=== PATIENT | male | born 1955 | race Caucasian/White ===

== ENCOUNTER → 2017-03-15 | Outpatient (CLI) | payer BC | LOC: LAB 11:18 → EDSTATUS 11:26 | DX: R06.02 Shortness of breath (principal); R60.9 Edema, unspecified ==

== ENCOUNTER → 2017-04-04 | Outpatient (REF) | LOC: LAB 16:18 | DX: R79.89 Other specified abnormal findings of blood chemistry (principal); D72.829 Elevated white blood cell count, unspecified ==

== ENCOUNTER → 2017-04-11 | Outpatient (REF) | LOC: LAB 08:59 | DX: R74.8 Abnormal levels of other serum enzymes (principal); R79.89 Other specified abnormal findings of blood chemistry ==

== ENCOUNTER → 2017-05-31 | Outpatient (CLI) | payer BC | LOC: RAD 08:07 | DX: N26.1 Atrophy of kidney (terminal) (principal) ==

== ENCOUNTER → 2017-06-27 | Outpatient (CLI) | payer BC | LOC: RAD 09:06 | DX: R79.89 Other specified abnormal findings of blood chemistry (principal); E11.8 Type 2 diabetes mellitus with unspecified complications; Z79.4 Long term (current) use of insulin ==

== ENCOUNTER 2017-11-25 15:00 | Outpatient (RCR) | payer BC | END 2018-02-23 | disposition home or self-care (01) | LOC: CARDREHAB | DX: Z48.812 Encounter for surgical aftercare following surgery on the circulatory system (principal); Z95.5 Presence of coronary angioplasty implant and graft; I21.4 Non-ST elevation (NSTEMI) myocardial infarction ==

== ENCOUNTER 2018-02-24 14:30 | Outpatient (RCR) | payer BC | END 2018-05-18 13:15 | disposition home or self-care (01) | LOC: CARDREHAB 14:30 | DX: Z48.812 Encounter for surgical aftercare following surgery on the circulatory system (principal); Z95.5 Presence of coronary angioplasty implant and graft; I25.2 Old myocardial infarction ==

== ENCOUNTER → 2018-06-12 | Outpatient (CLI) | payer BC ==
[2018-06-12 08:19] LABS: BASO # 0.1 (0.02-0.10); EOS # 0.6 (0.04-0.40); EOS % 5.9 % (0.0-4.0); HEMATOCRIT 43.7 % (42.0-52.0); HEMOGLOBIN 13.9 g/dL (13.5-18.0); LYMPH# 2.3 (1.50-4.00); MEAN CELL VOLUME 83 fl (78-100); MEAN CORPUSCULAR HEMOGLOBIN 26 pg (27-31); MEAN CORPUSCULAR HGB CONC 32 g/dL (33-37); MEAN PLATELET VOLUME 9.8 fl (7.4-10.4); MONO # 1.1 (0.20-0.80); NEU # 5.9 (1.40-6.50); PLATELET COUNT 297 K/mm3 (130-400); RED BLOOD COUNT 5.28 M/mm3 (4.20-5.60); RED CELL DISTRIBUTION WIDTH 20.9 % (11.5-14.5)
[2018-06-12 08:21] LABS: POTASSIUM 4.9 mmol/L (3.6-5.0)
[2018-06-12 08:47] LABS: PROTHROMBIN TIME 13.3 SECONDS (9.0-12.0)
== END ==
LOC: LAB 07:54
PROVIDERS: Internal Medicine
DX: G93.40 Encephalopathy, unspecified (principal)

== ENCOUNTER → 2018-06-19 | Outpatient (CLI) | payer BC ==
[2018-06-19 09:34] LABS: PROTHROMBIN TIME 20.2 SECONDS (9.0-12.0)
== END ==
LOC: LAB 06:45
PROVIDERS: Family Medicine
DX: I69.30 Unspecified sequelae of cerebral infarction (principal)

== ENCOUNTER → 2018-06-26 | Outpatient (CLI) | payer BC ==
[2018-06-26 08:32] LABS: PROTHROMBIN TIME 30.3 SECONDS (9.0-12.0)
== END ==
LOC: LAB 06:55 → EDSTATUS 08:04
PROVIDERS: Family Medicine
DX: I50.9 Heart failure, unspecified (principal)

== ENCOUNTER → 2018-07-03 | Outpatient (CLI) | payer BC ==
[2018-07-03 08:44] LABS: PROTHROMBIN TIME 35.9 SECONDS (9.0-12.0)
== END ==
LOC: LAB 06:30
PROVIDERS: Family Medicine
DX: I50.22 Chronic systolic (congestive) heart failure (principal); I21.4 Non-ST elevation (NSTEMI) myocardial infarction; Z79.01 Long term (current) use of anticoagulants

== ENCOUNTER → 2018-07-10 | Outpatient (CLI) | payer BC ==
[2018-07-10 20:05] LABS: PROTHROMBIN TIME 18.9 SECONDS (9.0-12.0)
== END ==
LOC: LAB 17:53
PROVIDERS: Family Medicine
DX: I12.9 Hypertensive chronic kidney disease with stage 1 through stage 4 chronic kidney disease, or unspecified chronic kidney disease (principal); N18.9 Chronic kidney disease, unspecified; I69.30 Unspecified sequelae of cerebral infarction

== ENCOUNTER → 2018-07-17 | Outpatient (CLI) | payer BC ==
[2018-07-17 14:52] LABS: PROTHROMBIN TIME 16.3 SECONDS (9.0-12.0)
== END ==
LOC: LAB 13:00 → EDSTATUS 14:07
PROVIDERS: Family Medicine
DX: Z51.81 Encounter for therapeutic drug level monitoring (principal); Z79.01 Long term (current) use of anticoagulants

== ENCOUNTER → 2018-07-18 | Outpatient (CLI) | payer BC | LOC: LAB 05:48 | DX: N18.9 Chronic kidney disease, unspecified (principal) ==

== ENCOUNTER → 2018-07-21 | Outpatient (CLI) | payer BC ==
[2018-07-21 08:19] LABS: PROTHROMBIN TIME 21.6 SECONDS (9.0-12.0)
== END ==
LOC: LAB 06:42
PROVIDERS: Family Medicine
DX: I50.9 Heart failure, unspecified (principal)

== ENCOUNTER → 2018-07-28 | Outpatient (CLI) | payer BC ==
[2018-07-28 07:50] LABS: PROTHROMBIN TIME 26.2 SECONDS (9.0-12.0)
== END ==
LOC: LAB 06:45 → EDSTATUS 07:06
PROVIDERS: Family Medicine
DX: I50.9 Heart failure, unspecified (principal)

== ENCOUNTER → 2018-08-11 | Outpatient (CLI) | payer BC ==
[2018-08-11 09:20] LABS: PROTHROMBIN TIME 41.6 SECONDS (9.0-12.0)
== END ==
LOC: LAB 08:00
PROVIDERS: Family Medicine
DX: Z51.81 Encounter for therapeutic drug level monitoring (principal); Z79.01 Long term (current) use of anticoagulants; Z86.73 Personal history of transient ischemic attack (TIA), and cerebral infarction without residual deficits

== ENCOUNTER → 2018-08-21 | Outpatient (CLI) | payer BC ==
[2018-08-21 14:32] LABS: PROTHROMBIN TIME 27.4 SECONDS (9.0-12.0)
== END ==
LOC: LAB 14:01
PROVIDERS: Family Medicine
DX: I21.4 Non-ST elevation (NSTEMI) myocardial infarction (principal); Z79.01 Long term (current) use of anticoagulants

== ENCOUNTER → 2018-08-29 | Outpatient (CLI) | payer BC | LOC: LAB 06:10 | DX: E11.9 Type 2 diabetes mellitus without complications (principal) ==

== ENCOUNTER → 2018-09-04 | Outpatient (CLI) | payer BC ==
[2018-09-04 12:43] LABS: PROTHROMBIN TIME 48.9 SECONDS (9.0-12.0)
== END ==
LOC: LAB 11:15
PROVIDERS: Family Medicine
DX: I42.9 Cardiomyopathy, unspecified (principal)

== ENCOUNTER → 2018-09-06 | Outpatient (CLI) | payer BC ==
[2018-09-06 07:18] LABS: PROTHROMBIN TIME 30.9 SECONDS (9.0-12.0)
== END ==
LOC: LAB 06:15
PROVIDERS: Family Medicine
DX: I50.22 Chronic systolic (congestive) heart failure (principal); Z79.01 Long term (current) use of anticoagulants

== ENCOUNTER → 2018-09-11 | Outpatient (CLI) | payer BC ==
[2018-09-11 09:29] LABS: PROTHROMBIN TIME 19.7 SECONDS (9.0-12.0)
== END ==
LOC: LAB 07:55
PROVIDERS: Family Medicine
DX: I25.10 Atherosclerotic heart disease of native coronary artery without angina pectoris (principal)

== ENCOUNTER → 2018-09-18 | Outpatient (CLI) | payer BC ==
[2018-09-18 08:18] LABS: PROTHROMBIN TIME 24.9 SECONDS (9.0-12.0)
== END ==
LOC: LAB 07:38
PROVIDERS: Family Medicine
DX: I50.9 Heart failure, unspecified (principal)

== ENCOUNTER → 2018-09-26 | Outpatient (CLI) | payer BC ==
[2018-09-26 10:35] LABS: CALCIUM 8.8 mg/dL (8.4-10.2); POTASSIUM 3.8 mmol/L (3.6-5.0)
[2018-09-26 11:37] LABS: PROTHROMBIN TIME 27.8 SECONDS (9.0-12.0)
== END ==
LOC: LAB 08:41
PROVIDERS: Family Medicine
DX: I50.22 Chronic systolic (congestive) heart failure (principal)

== ENCOUNTER → 2018-10-03 | Outpatient (CLI) | payer MEDICARE ==
[2018-10-03 13:29] LABS: CALCIUM 8.9 mg/dL (8.4-10.2); POTASSIUM 3.3 mmol/L (3.6-5.0)
== END ==
LOC: LAB 05:15 → EDSTATUS 12:41
PROVIDERS: Family Medicine
DX: E11.9 Type 2 diabetes mellitus without complications (principal); R60.9 Edema, unspecified; Z79.4 Long term (current) use of insulin

== ENCOUNTER → 2018-10-10 | Outpatient (CLI) | payer MEDICARE ==
[2018-10-10 13:34] LABS: PROTHROMBIN TIME 18.1 SECONDS (9.0-12.0)
== END ==
LOC: LAB 05:55
PROVIDERS: Family Medicine
DX: Z51.81 Encounter for therapeutic drug level monitoring (principal); Z79.01 Long term (current) use of anticoagulants; I25.10 Atherosclerotic heart disease of native coronary artery without angina pectoris

== ENCOUNTER → 2018-10-11 | Outpatient (CLI) | payer MEDICARE ==
[2018-10-11 05:59] LABS: POTASSIUM 3.4 mmol/L (3.6-5.0)
== END ==
LOC: LAB 05:30
PROVIDERS: Family Medicine
DX: R79.89 Other specified abnormal findings of blood chemistry (principal)

== ENCOUNTER → 2018-10-17 | Outpatient (CLI) | payer MEDICARE, BC | LOC: LAB 06:43 | PROVIDERS: Family Medicine | DX: I69.30 Unspecified sequelae of cerebral infarction (principal); Z79.01 Long term (current) use of anticoagulants ==

== ENCOUNTER → 2018-10-31 | Outpatient (CLI) | payer MEDICARE, BC ==
[2018-10-31 07:54] LABS: PROTHROMBIN TIME 19.7 SECONDS (9.0-12.0)
== END ==
LOC: LAB 06:29
PROVIDERS: Family Medicine
DX: I69.30 Unspecified sequelae of cerebral infarction (principal); Z79.01 Long term (current) use of anticoagulants

== ENCOUNTER → 2018-11-14 | Outpatient (CLI) | payer MEDICARE, BC | LOC: LAB 05:15 | PROVIDERS: Family Medicine | DX: Z79.01 Long term (current) use of anticoagulants (principal) ==

== ENCOUNTER → 2018-12-05 | Outpatient (CLI) | payer MEDICARE, BC ==
[2018-12-05 06:44] LABS: PROTHROMBIN TIME 35.4 SECONDS (9.0-12.0)
== END ==
LOC: LAB 05:39
PROVIDERS: Family Medicine
DX: I69.30 Unspecified sequelae of cerebral infarction (principal); Z79.01 Long term (current) use of anticoagulants

== ENCOUNTER → 2018-12-12 | Outpatient (CLI) | payer MEDICARE, BC ==
[2018-12-12 08:07] LABS: PROTHROMBIN TIME 25.1 SECONDS (9.0-12.0)
== END ==
LOC: LAB 07:05
PROVIDERS: Family Medicine
DX: I69.30 Unspecified sequelae of cerebral infarction (principal); Z79.01 Long term (current) use of anticoagulants

== ENCOUNTER → 2018-12-26 | Outpatient (CLI) | payer MEDICARE, BC | LOC: LAB 06:17 | PROVIDERS: Family Medicine | DX: I50.22 Chronic systolic (congestive) heart failure (principal); Z79.01 Long term (current) use of anticoagulants ==

== ENCOUNTER → 2019-01-04 | Outpatient (CLI) | payer MEDICARE, BC ==
[2019-01-04 07:47] LABS: PROTHROMBIN TIME 51.4 SECONDS (9.0-12.0)
== END ==
LOC: LAB 07:20
PROVIDERS: Family Medicine
DX: I69.30 Unspecified sequelae of cerebral infarction (principal); Z79.01 Long term (current) use of anticoagulants

== ENCOUNTER → 2019-01-05 | Outpatient (CLI) | payer MEDICARE, BC ==
[2019-01-05 08:55] LABS: PROTHROMBIN TIME 36.8 SECONDS (9.0-12.0)
== END ==
LOC: LAB 07:42
PROVIDERS: Family Medicine
DX: Z79.01 Long term (current) use of anticoagulants (principal)

== ENCOUNTER → 2019-01-08 | Outpatient (CLI) | payer MEDICARE, BC ==
[2019-01-08 07:26] LABS: PROTHROMBIN TIME 17.8 SECONDS (9.0-12.0)
== END ==
LOC: LAB 06:30
PROVIDERS: Family Medicine
DX: Z51.81 Encounter for therapeutic drug level monitoring (principal); Z79.01 Long term (current) use of anticoagulants

== ENCOUNTER → 2019-01-11 | Outpatient (CLI) | payer MEDICARE, BC ==
[2019-01-11 06:17] LABS: PROTHROMBIN TIME 21.9 SECONDS (9.0-12.0)
== END ==
LOC: LAB 05:28
PROVIDERS: Family Medicine
DX: Z51.81 Encounter for therapeutic drug level monitoring (principal); Z79.01 Long term (current) use of anticoagulants; Z86.73 Personal history of transient ischemic attack (TIA), and cerebral infarction without residual deficits

== ENCOUNTER → 2019-01-16 | Outpatient (CLI) | payer MEDICARE, BC ==
[2019-01-16 09:30] LABS: PROTHROMBIN TIME 16.5 SECONDS (9.0-12.0)
== END ==
LOC: LAB 06:13
PROVIDERS: Family Medicine
DX: I69.30 Unspecified sequelae of cerebral infarction (principal); Z79.01 Long term (current) use of anticoagulants

== ENCOUNTER → 2019-01-19 | Outpatient (CLI) | payer MEDICARE, BC ==
[2019-01-19 16:02] LABS: PROTHROMBIN TIME 25.2 SECONDS (9.0-12.0)
== END ==
LOC: LAB 15:10
PROVIDERS: Family Medicine
DX: Z51.81 Encounter for therapeutic drug level monitoring (principal); Z79.01 Long term (current) use of anticoagulants

== ENCOUNTER → 2019-01-23 | Outpatient (CLI) | payer MEDICARE, BC ==
[2019-01-23 07:10] LABS: PROTHROMBIN TIME 29.3 SECONDS (9.0-12.0)
== END ==
LOC: LAB 06:35
PROVIDERS: Family Medicine
DX: I25.10 Atherosclerotic heart disease of native coronary artery without angina pectoris (principal); Z79.01 Long term (current) use of anticoagulants

== ENCOUNTER → 2019-01-29 | Outpatient (CLI) | payer MEDICARE, BC ==
[2019-01-29 09:15] LABS: PROTHROMBIN TIME 22.5 SECONDS (9.0-12.0)
== END ==
LOC: LAB 06:54
PROVIDERS: Family Medicine
DX: Z01.89 Encounter for other specified special examinations (principal)

== ENCOUNTER → 2019-02-06 | Outpatient (CLI) | payer MEDICARE, BC ==
[2019-02-06 07:09] LABS: PROTHROMBIN TIME 26.1 SECONDS (9.0-12.0)
== END ==
LOC: LAB 06:20
PROVIDERS: Family Medicine
DX: I50.22 Chronic systolic (congestive) heart failure (principal); Z79.01 Long term (current) use of anticoagulants

== ENCOUNTER → 2019-02-27 | Outpatient (CLI) | payer MEDICARE, BC ==
[2019-02-27 08:32] LABS: PROTHROMBIN TIME 20.6 SECONDS (9.0-12.0)
== END ==
LOC: LAB 06:27
PROVIDERS: Family Medicine
DX: I69.30 Unspecified sequelae of cerebral infarction (principal); Z79.01 Long term (current) use of anticoagulants

== ENCOUNTER → 2019-03-27 | Outpatient (CLI) | payer MEDICARE, BC | LOC: LAB 05:05 | PROVIDERS: Family Medicine | DX: I69.30 Unspecified sequelae of cerebral infarction (principal); Z79.01 Long term (current) use of anticoagulants ==

== ENCOUNTER → 2019-04-10 | Outpatient (CLI) | payer MEDICARE, BC | LOC: LAB 05:28 → EDSTATUS 08:07 | PROVIDERS: Family Medicine | DX: I21.4 Non-ST elevation (NSTEMI) myocardial infarction (principal); I50.22 Chronic systolic (congestive) heart failure ==

== ENCOUNTER → 2019-05-02 | Outpatient (CLI) | payer MEDICARE, BC ==
[2019-05-02 06:32] LABS: PROTHROMBIN TIME 26.3 SECONDS (9.0-12.0)
== END ==
LOC: LAB 05:40
PROVIDERS: Family Medicine
DX: Z51.81 Encounter for therapeutic drug level monitoring (principal); Z79.01 Long term (current) use of anticoagulants

== ENCOUNTER → 2019-05-16 | Outpatient (CLI) | payer MEDICARE, BC ==
[2019-05-16 06:29] LABS: PROTHROMBIN TIME 28.9 SECONDS (9.0-12.0)
== END ==
LOC: LAB 05:30
PROVIDERS: Family Medicine
DX: I21.4 Non-ST elevation (NSTEMI) myocardial infarction (principal); Z79.01 Long term (current) use of anticoagulants

== ENCOUNTER → 2019-05-30 | Outpatient (CLI) | payer MEDICARE, BC ==
[2019-05-30 07:30] LABS: PROTHROMBIN TIME 24.2 SECONDS (9.0-12.0)
== END ==
LOC: LAB 06:35
PROVIDERS: Family Medicine
DX: I21.4 Non-ST elevation (NSTEMI) myocardial infarction (principal); Z79.01 Long term (current) use of anticoagulants

== ENCOUNTER → 2019-06-13 | Outpatient (CLI) | payer MEDICARE, BC ==
[2019-06-13 06:35] LABS: PROTHROMBIN TIME 28.2 SECONDS (9.0-12.0)
== END ==
LOC: LAB 05:25
PROVIDERS: Family Medicine
DX: I25.10 Atherosclerotic heart disease of native coronary artery without angina pectoris (principal)

== ENCOUNTER → 2019-07-12 | Outpatient (CLI) | payer MEDICARE, BC ==
[2019-07-12 10:49] LABS: PROTHROMBIN TIME 41.3 SECONDS (9.0-12.0)
== END ==
LOC: LAB 07:05
PROVIDERS: Family Medicine
DX: Z51.81 Encounter for therapeutic drug level monitoring (principal); Z79.01 Long term (current) use of anticoagulants

== ENCOUNTER → 2019-07-16 | Outpatient (CLI) | payer MEDICARE, BC ==
[2019-07-16 08:17] LABS: PROTHROMBIN TIME 22.9 SECONDS (9.0-12.0)
== END ==
LOC: LAB 07:10
PROVIDERS: Family Medicine
DX: Z51.81 Encounter for therapeutic drug level monitoring (principal); Z79.01 Long term (current) use of anticoagulants

== ENCOUNTER → 2019-07-23 | Outpatient (CLI) | payer MEDICARE, BC ==
[2019-07-23 11:03] LABS: PROTHROMBIN TIME 17.5 SECONDS (9.0-12.0)
== END ==
LOC: LAB 10:05
PROVIDERS: Family Medicine
DX: Z51.81 Encounter for therapeutic drug level monitoring (principal); Z79.01 Long term (current) use of anticoagulants

== ENCOUNTER → 2019-08-13 | Outpatient (CLI) | payer MEDICARE, BC ==
[2019-08-13 08:29] LABS: PROTHROMBIN TIME 16.3 SECONDS (9.0-12.0)
== END ==
LOC: LAB 07:44
PROVIDERS: Family Medicine
DX: Z79.01 Long term (current) use of anticoagulants (principal); Z86.718 Personal history of other venous thrombosis and embolism

== ENCOUNTER → 2019-08-20 | Outpatient (CLI) | payer MEDICARE, BC ==
[2019-08-20 13:10] LABS: PROTHROMBIN TIME 23.2 SECONDS (9.0-12.0)
== END ==
LOC: LAB 12:45
PROVIDERS: Family Medicine
DX: Z51.81 Encounter for therapeutic drug level monitoring (principal); Z79.01 Long term (current) use of anticoagulants

== ENCOUNTER → 2019-08-28 | Outpatient (CLI) | payer MEDICARE, BC | LOC: LAB 05:30 | PROVIDERS: Family Medicine | DX: Z51.81 Encounter for therapeutic drug level monitoring (principal); Z79.01 Long term (current) use of anticoagulants ==

== ENCOUNTER → 2019-09-11 | Outpatient (CLI) | payer MEDICARE, BC ==
[~2019-09-11] MED LIST: AMIODARONE200 MG PO; ASPIRIN E.C. 8181 MG; ATORVASTATIN CA20 MG PO; CARVEDILOL25 MG PO; COLACE100 M1 PO; FUROSEMIDE40 MG; LEVEMIR FLEX100 U/ML SQ; MASON NATURAL1000 IU PO; MELATONIN3 M3 PO; METOLAZONE5 MG PO; MIRALAX17 GM PO; MODAFINIL100 MG PO; NOVOLOG FLEX100 U/ML SQ; REMERON15 MG PO; WARFARIN SODIUM2 MG PO
[2019-09-11 05:55] LABS: PROTHROMBIN TIME 27.8 SECONDS (9.0-12.0)
== END ==
LOC: LAB 05:30
PROVIDERS: Family Medicine
DX: I21.4 Non-ST elevation (NSTEMI) myocardial infarction (principal); Z79.01 Long term (current) use of anticoagulants

== ENCOUNTER 2019-09-12 15:45 | Emergency (ER) | payer MEDICARE, BC ==
[~2019-09-12] VITALS: Wt 95.2 kg
[2019-09-12] MEDS ORDERED: AMIODARONE200 MG PO (15:56)
[2019-09-12] MEDS ORDERED: ASPIRIN E.C. 8181 MG (15:57)
[2019-09-12] MEDS ORDERED: ATORVASTATIN CA20 MG PO (15:57)
[2019-09-12] MEDS ORDERED: CARVEDILOL25 MG PO (15:58)
[2019-09-12] MEDS ORDERED: COLACE100 M1 PO (15:59)
[2019-09-12] MEDS ORDERED: WARFARIN SODIUM2 MG PO (15:59)
[2019-09-12] MEDS ORDERED: FUROSEMIDE40 MG (15:59)
[2019-09-12] MEDS ORDERED: LEVEMIR FLEX100 U/ML SQ (15:59)
[2019-09-12] MEDS ORDERED: METOLAZONE5 MG PO (16:00)
[2019-09-12] MEDS ORDERED: REMERON15 MG PO (16:00)
[2019-09-12] MEDS ORDERED: MODAFINIL100 MG PO (16:00)
[2019-09-12] MEDS ORDERED: MELATONIN3 M3 PO (16:00)
[2019-09-12] MEDS ORDERED: MASON NATURAL1000 IU PO (16:01)
[2019-09-12] MEDS ORDERED: MIRALAX17 GM PO (16:01)
[2019-09-12] MEDS ORDERED: NOVOLOG FLEX100 U/ML SQ (16:01)
[2019-09-12 16:18] LABS: HEMATOCRIT 53.4 % (42.0-52.0); HEMOGLOBIN 18.2 g/dL (13.5-18.0); MEAN CELL VOLUME 85 fl (78-100); MEAN CORPUSCULAR HEMOGLOBIN 29 pg (27-31); MEAN CORPUSCULAR HGB CONC 34 g/dL (33-37); MEAN PLATELET VOLUME 9.8 fl (7.4-10.4); PLATELET COUNT 242 K/mm3 (130-400); RED BLOOD COUNT 6.29 M/mm3 (4.20-5.60); RED CELL DISTRIBUTION WIDTH 16.7 % (11.5-14.5); WHITE BLOOD COUNT 13.9 K/mm3 (4.8-10.8)
[2019-09-12 16:26] LABS: LYMPHOCYTE 14 % (20-51); MONOCYTE 13 % (3-10); NEUTROPHILS 71 % (42-75)
[2019-09-12 16:27] LABS: ALBUMIN 3.6 g/dL (3.4-4.8); POTASSIUM 3.2 mmol/L (3.5-5.1)
[2019-09-12 16:29] LABS: CALCIUM 9.9 mg/dL (8.3-10.5)
[2019-09-12 16:32] LABS: TOTAL BILIRUBIN 1.6 mg/dL (0.2-1.2)
[2019-09-12 16:58] LABS: PH-URINE 7.5 (5.0 - 8.0); URINE APPEARANCE CLEAR; URINE BILIRUBIN NEGATIVE (NEGATIVE); URINE BLOOD TRACE (NEGATIVE); URINE COLOR YELLOW; URINE KETONE NEGATIVE (NEGATIVE); URINE LEUKOCYTE ESTERASE NEGATIVE (NEGATIVE); URINE MUCUS PRESENT (NOT PRESENT); URINE NITRATE NEGATIVE (NEGATIVE); URINE PROTEIN(semi-quant) TRACE mg/dL (NEGATIVE); URINE UROBILINOGEN NORMAL (NORMAL); URINE WBC 0-1 /hpf (0-3)
[2019-09-12 17:57] VITALS: BP 128/74
== END 2019-09-12 17:38 | disposition home or self-care (01) ==
LOC: ED 15:45
PROVIDERS: Physician Assistant
DX: M25.561 Pain in right knee (principal); E87.6 Hypokalemia; D72.829 Elevated white blood cell count, unspecified; E11.22 Type 2 diabetes mellitus with diabetic chronic kidney disease; I13.0 Hypertensive heart and chronic kidney disease with heart failure and stage 1 through stage 4 chronic kidney disease, or unspecified chronic kidney disease; I50.9 Heart failure, unspecified; N18.9 Chronic kidney disease, unspecified; S89.91XA Unspecified injury of right lower leg, initial encounter; I25.2 Old myocardial infarction; I25.10 Atherosclerotic heart disease of native coronary artery without angina pectoris; Z79.01 Long term (current) use of anticoagulants; Z79.4 Long term (current) use of insulin; Z79.82 Long term (current) use of aspirin; W06.XXXA Fall from bed, initial encounter; Y92.129 Unspecified place in nursing home as the place of occurrence of the external cause
CPT/HCPCS: L1830

== ENCOUNTER → 2019-10-02 | Outpatient (CLI) | payer MEDICARE, BC, MEDICAID ==
[2019-09-12 17:57] VITALS: BP 128/74
[2019-10-02 05:55] LABS: PROTHROMBIN TIME 27.1 SECONDS (9.0-12.0)
== END ==
LOC: LAB 05:30
PROVIDERS: Family Medicine
DX: I21.4 Non-ST elevation (NSTEMI) myocardial infarction (principal); Z79.01 Long term (current) use of anticoagulants

== ENCOUNTER → 2019-10-09 | Outpatient (CLI) | payer MEDICARE, BC, MEDICAID ==
[2019-09-12 17:57] VITALS: BP 128/74
[2019-10-09 07:07] LABS: PROTHROMBIN TIME 41.2 SECONDS (9.0-12.0)
== END ==
LOC: LAB 05:57
PROVIDERS: Family Medicine
DX: Z51.81 Encounter for therapeutic drug level monitoring (principal); Z79.01 Long term (current) use of anticoagulants

== ENCOUNTER → 2019-10-12 | Outpatient (CLI) | payer MEDICARE, BC, MEDICAID ==
[2019-09-12 17:57] VITALS: BP 128/74
[2019-10-12 12:18] LABS: PROTHROMBIN TIME 31.9 SECONDS (9.0-12.0)
== END ==
LOC: LAB 11:38
PROVIDERS: Family Medicine
DX: Z51.81 Encounter for therapeutic drug level monitoring (principal); Z79.01 Long term (current) use of anticoagulants

== ENCOUNTER → 2019-10-19 | Outpatient (CLI) | payer MEDICARE, BC, MEDICAID ==
[2019-10-19 15:28] LABS: PROTHROMBIN TIME 18.9 SECONDS (9.0-12.0)
== END ==
LOC: LAB 14:40
PROVIDERS: Family Medicine
DX: Z51.81 Encounter for therapeutic drug level monitoring (principal); Z79.01 Long term (current) use of anticoagulants

== ENCOUNTER → 2019-10-26 | Outpatient (CLI) | payer MEDICARE, BC, MEDICAID ==
[2019-10-26 10:01] LABS: PROTHROMBIN TIME 19.4 SECONDS (9.0-12.0)
== END ==
LOC: LAB 06:30
PROVIDERS: Family Medicine
DX: Z79.01 Long term (current) use of anticoagulants (principal); Z86.73 Personal history of transient ischemic attack (TIA), and cerebral infarction without residual deficits

== ENCOUNTER → 2019-11-02 | Outpatient (CLI) | payer MEDICARE, BC, MEDICAID ==
[2019-11-02 08:42] LABS: PROTHROMBIN TIME 23.4 SECONDS (9.0-12.0)
== END ==
LOC: LAB 07:00
PROVIDERS: Family Medicine
DX: Z51.81 Encounter for therapeutic drug level monitoring (principal); Z79.01 Long term (current) use of anticoagulants

== ENCOUNTER → 2019-11-30 | Outpatient (CLI) | payer MEDICARE, BC, MEDICAID ==
[2019-11-30 14:23] LABS: PROTHROMBIN TIME 34.1 SECONDS (9.0-12.0)
== END ==
LOC: LAB 13:40
PROVIDERS: Family Medicine
DX: Z51.81 Encounter for therapeutic drug level monitoring (principal); Z79.01 Long term (current) use of anticoagulants

== ENCOUNTER → 2019-12-07 | Outpatient (CLI) | payer MEDICARE, BC, MEDICAID ==
[2019-12-07 13:47] LABS: PROTHROMBIN TIME 41.9 SECONDS (9.0-12.0)
== END ==
LOC: LAB 12:15
PROVIDERS: Family Medicine
DX: Z51.81 Encounter for therapeutic drug level monitoring (principal); Z79.01 Long term (current) use of anticoagulants

== ENCOUNTER → 2019-12-10 | Outpatient (CLI) | payer MEDICARE, BC, MEDICAID ==
[2019-12-10 10:03] LABS: PROTHROMBIN TIME 25.5 SECONDS (9.0-12.0)
== END ==
LOC: LAB 08:16
PROVIDERS: Family Medicine
DX: Z51.81 Encounter for therapeutic drug level monitoring (principal); Z79.01 Long term (current) use of anticoagulants

== ENCOUNTER → 2019-12-14 | Outpatient (CLI) | payer MEDICARE, BC, MEDICAID ==
[2019-12-14 08:15] LABS: PROTHROMBIN TIME 26.7 SECONDS (9.0-12.0)
== END ==
LOC: LAB 07:25
PROVIDERS: Family Medicine
DX: Z51.81 Encounter for therapeutic drug level monitoring (principal); Z79.01 Long term (current) use of anticoagulants